=== PATIENT | female | born 1950 | race Caucasian/White ===

== ENCOUNTER 2023-08-30 09:32 | Outpatient (REF) | payer BC, SELFPAY ==
[2023-08-30 11:28] LABS: MANUAL DIFF FLAG NO
[2023-08-30 11:33] LABS: Basophils Percent Auto 0.7 % (0-2); Eosinophils Absolute Auto 0.1 X10*3/uL (0.0-0.4); Eosinophils Percent Auto 1.1 % (0-4); Hematocrit 41.8 % (37.0-47.0); Hemoglobin 13.8 g/dl (12.0-16.0); Imm Gran Abs Auto 0.02 X10*3/uL (0.00-0.03); Imm Gran Pct Auto 0.5 % (0.0-0.4); Lymphocytes Absolute Auto 1.3 X10*3/uL (1.2-4.9); Lymphocytes Percent Auto 29.4 % (20-40); Mean Corpuscular Hemoglobin 29.9 pg (27.0-33.0); Mean Corpuscular Volume 90.7 fL (80.0-98.0); Mean Platelet Volume 10.3 fL (9.4-12.3); Monocytes Absolute Auto 0.3 X10*3/uL (0.1-1.2); Monocytes Percent Auto 6.9 % (2-11); Neutrophils Absolute Auto 2.7 x10*3/uL (2.0-8.3); Neutrophils Percent Auto 61.4 % (45-73); Platelet Count 269 X10*3/uL (160-400); Red Blood Count 4.61 X10*6/uL (4.20-5.50); Red Cell Distribution Width 13.2 % (11.0-16.0); White Blood Count 4.4 X10*3/uL (4.8-10.8)
[2023-08-30 12:03] LABS: Alanine Aminotransferase 15 U/L (0-31); Albumin Level 4.4 g/dL (3.5-5.0); Alkaline Phosphatase 47 U/L (39-117); Anion Gap 13 (12-20); Aspartate Amino Transferase 28 U/L (5-31); Bilirubin Direct 0.4 mg/dL (0.0-0.5); Bilirubin Total 1.4 mg/dL (0.0-1.0); Blood Urea Nitrogen 17 mg/dL (9-16); Carbon Dioxide 28 mmol/L (22-29); Chloride 104 mmol/L (96-108); Cholesterol 236 mg/dL (<200); Estimated Glomerular Filt Rate > 60; Glucose Fasting 88 mg/dL (60-99); HDL Cholesterol 88 mg/dL (>40); LDL Cholesterol Calculated 131 mg/dL (<100); Potassium 4.2 mmol/L (3.3-5.1); Sodium 141 mmol/L (135-145); Total Protein 8.1 g/dL (6.5-8.0); Triglycerides 87 mg/dL (<150)
== END 2023-08-30 09:33 | disposition home or self-care (01) ==
LOC: HO.HMGCLDS 09:32
PROVIDERS: PCP Internal Medicine; Visit Provider Internal Medicine
DX: Z00.00 Encounter for general adult medical examination without abnormal findings (principal); R53.83 Other fatigue; E78.5 Hyperlipidemia, unspecified
CPT/HCPCS: 36415; 80051; 80061; 80076; 82565; 82947; 84520; 85025

== ENCOUNTER 2025-05-15 09:21 | Emergency (ER) | payer BC, SELFPAY ==
[2025-05-15 09:57] VITALS: BP 162/67; PULSE 68; RESP 18; TEMP 36.8; O2SAT 98; BMI 28.3
--- NOTE | 2025-05-15 10:47 | PC.NURSE ---
Pt ambulatory to the BR with a steady gait.
--- NOTE | 2025-05-15 10:56 | PC.NURSE ---
Pt bladder scanned for 300cc. Pt then urinated to provided urine sample (only about 5cc) which was sent to lab.
[2025-05-15 11:06] LABS: Appearance Urine Turbid; Glucose Urine UA Negative (Negative); PH 5.5 (5.0-9.0); Specific Gravity - Urine 1.015 (1.005-1.025); UMIC TRIGGER UACC YES
--- NOTE | 2025-05-15 11:12 | ED.FEMALEGU ---
HPI - Female Genitourinary General Chief complaint: Urogenital-Female Stated complaint: Trouble urinating Time Seen by Provider: 05/15/25 10:38 Source: patient and RN notes reviewed Mode of arrival: ambulatory Limitations: no limitations History of Present Illness ED Provider: Socrates Melissa PA-C HPI Narrative: 74-year-old female with medical history of HLD, HSV 2 presents to the ED due to 3 days of difficulty urinating. Patient states she went to urgent care on 05/09/25 due to painful urination and was diagnosed by culture with genital herpes. Patient was started on acyclovir. Patient reports she is unsure if difficulty with urination began before starting acyclovir or after. She was told that acyclovir could cause urinary retention and she is worried that this medication is causing her symptoms. Related Data Previous Rx's ?Medication ?Instructions ?Recorded simvastatin 40 mg tablet 40 mg PO BEDTIME #90 tabs 05/02/25 Allergies Allergy/AdvReac Type Severity Reaction Status Date / Time No Known Allergies Allergy Verified 05/15/25 09:59 Review of Systems Review of Systems: CONST: Negative for fever, body aches and chills. HENT: Negative for neck pain/stiffness, headache, congestion, sore throat, swelling. EYES: Negative for discharge/pain or vision changes. RESP: Negative for cough/hemoptysis and shortness of breath. CV: Negative chest pain, difficulty breathing, palpitations. ABD: Negative pain, nausea, vomiting. : Negative increase frequency, dysuria, blood in urine or stool. POS straining with urination MUSC: Negative for muscle aches, edema. SKIN: Negative rash, lesions/sores. NEURO: Negative headache, dizziness, weakness. Yes all other systems are reviewed and are negative [facility] Past Medical History Attestation statement: The following information was validated with the patient. Source: old records reviewed and nursing notes reviewed Social History Social History Advance Directives: No Advance Directives Information Provided: Yes Physical Exam Vital Signs: Vital Signs: Last Vital Signs Temp 98.3 F 05/15/25 09:57 Pulse 68 05/15/25 09:57 Resp 18 05/15/25 09:57 BP 162/67 H 05/15/25 09:57 Pulse Ox 98 05/15/25 09:57 O2 Del Method Room Air 05/15/25 09:57 BMI result Body Mass Index 28.3 GENERAL APPEARANCE: ?AxOx4, generally well-appearing, no acute distress. HEENT: ?NC, AT. MMM. EOMI, clear conjunctiva, oropharynx clear. NECK: ?Supple without lymphadenopathy.? No stiffness or restricted ROM. HEART:? Normal rate and regular rhythm, normal S1/S1, no m/r/g LUNGS:? CTAB, moving air well. No crackles or wheezes are heard. ABDOMEN: ?Soft, nontender, nondistended, no bladder distention, no suprapubic tenderness to palpation, with good bowel sounds heard. EXTREMITIES: ?Without cyanosis, clubbing or edema. NEUROLOGICAL: ?Grossly nonfocal. Alert and oriented, moving all 4 extremities. Observed to ambulate with normal gait. Skin: ?Warm and dry without any rash. 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 Patient states she went to urgent care on 05/09/25 due to painful urination and was diagnosed by culture with genital herpes. Patient was started on acyclovir. Patient reports she is unsure if difficulty with urination began before starting acyclovir or after. She was told that acyclovir could cause urinary retention and she is worried that this medication is causing her symptoms. Patient states she has had vaginal prolapse in the past, has pessary in place. Patient without any neurological defects, no pronator drift, ambulating without ataxic gait. plan: labs, UA, PVR bladder scan Course 12:55- Labs without leukocytosis, H and H stable, no electrolyte abnormalities. Patient attempted to give urine for UA, was only able to urinate very small amount, PVR revealed >300ml. Patient was straight cathed and 300 mL of urine collected. UA negative for infection, blood. 14:15- Patient urinated 100 mL, PVR shows >232 mL urine left in bladder. We will provide referral for [facility], [facility] uro rehab therapy manager for follow up. I counseled patient that she needs further workup for urinary retention. Volume of urine left in bladder not significant enough to need Lantigua catheterization. Differential Diagnosis Differential Diagnoses: The differential diagnosis associated with the presentation includes UTI Bladder outlet obstruction Medication side effect Neurogenic bladder Admission/Observation Consideration of admission/observation: Escalation of care including admission/observation considered Lab Data MDM Lab Attestation statement: I reviewed the patient's lab results. 05/15/25 11:33 05/15/25 11:33 Labs: Lab Results 05/15/25 05/15/25 05/15/25 Range/Units 10:51 11:24 11:33 WBC 6.0 (4.8-10.8) X10*3/uL RBC 4.72 (4.20-5.50) X10*6/uL Hgb 13.7 (12.0-16.0) g/dl Hct 41.6 (37.0-47.0) % MCV 88.1 (80.0-98.0) fL MCH 29.0 (27.0-33.0) pg MCHC 32.9 (31.0-35.0) g/dl RDW 12.9 (11.0-16.0) % Plt Count 264 (160-400) X10*3/uL MPV 9.6 (9.4-12.3) fL Immature Gran % (Auto) 0.2 (0.0-0.4) % Neut % (Auto) 70.0 (45-73) % Lymph % (Auto) 23.1 (20-40) % [place] % (Auto) 5.5 (2-11) % Eos % (Auto) 0.5 (0-4) % Baso % (Auto) 0.7 (0-2) % Lymph # (Auto) 1.4 (1.2-4.9) X10*3/uL [place] # (Auto) 0.3 (0.1-1.2) X10*3/uL Eos # (Auto) 0.0 (0.0-0.4) X10*3/uL Baso # (Auto) 0.0 (0.0-0.2) X10*3/uL Abs Immat Gran (auto) 0.01 (0.00-0.03) X10*3/uL Absolute Neuts (auto) 4.2 (2.0-8.3) x10*3/uL Absolute Nucleated RBC 0.000 (0.0-0.012) X10*3/uL Nucleated RBC % (auto) 0.0 (0.0-0.2) /100WBC Sodium 142 (135-145) mmol/L Potassium 4.3 (3.3-5.1) mmol/L Chloride 104 (96-108) mmol/L Carbon Dioxide 28 (22-29) mmol/L Anion Gap 14 (12-20) BUN 12 (9-16) mg/dL Creatinine 0.81 (0.5-1.4) mg/dL Estim Creat Clear Calc 60.4 Estimated GFR > 60 Random Glucose 101 (60-115) mg/dL Calcium 9.6 (8.4-10.2) mg/dL Total Bilirubin 0.9 (0.0-1.0) mg/dL AST 23 (5-31) U/L ALT 13 (0-31) U/L Alkaline Phosphatase 48 (39-117) U/L Total Protein 8.1 H (6.5-8.0) g/dL Albumin 4.6 (3.5-5.0) g/dL Urine Color Yellow Yellow Urine Appearance Turbid Clear Urine pH 5.5 6.0 (5.0-9.0) Ur Specific [place] 1.015 1.015 (1.005-1.025) Urine Protein 30 (1+) H Negative (Neg-Trace) mg/dL Urine Glucose (UA) Negative Negative (Negative) mg/dL Urine Ketones Trace Negative (Negative) mg/dL Urine Blood Large (3+) H Negative (Negative) Urine Nitrite Negative Negative (Negative) Ur Leukocyte Esterase Large (3+) H Negative (Negative) Urine RBC 3-5 H (0-2) /HPF Urine WBC >50 H (0-5) /HPF Ur Squamous Epith Cells >20 (0-2) /HPF Urine Bacteria 2+ (None Seen) Hyaline Casts 0-2 (0-2) /LPF External Record Review External record reviewed: Inpatient record, Office record and Outpatient record Discharge Plan Discharge Clinical Impression: Urinary retention Patient Disposition: Home, Self-Care Instructions: Acute Urinary Retention in Women (ED) Additional Instructions: You were evaluated in the ED today due to difficulty urinating. Your lab work was negative for infection or electrolyte abnormality. Your urinary analysis was negative for blood or infection. Your bladder scan revealed >232mL of urine after you voided 100mL I have placed a referral for Urology for you. [facility] will be contacting you within 2 business?days after being discharged from the Emergency?Department.? During this?phone call, they will inform you when your follow up appointment will be scheduled. If you have not received a call from [facility] after 2 business?days, please call the?office at [phone]. I have also provided information to [facility] uro[facility]ne[facility]. You should call [facility] office tomorrow morning at 8am for follow up. Please return to the emergency department if you develop fevers over 104?, distention or hardening of your lower abdomen, abdominal pain, inability to urinate, worsening difficulty urinating, blood in the urine, or any new/worsening/concerning symptoms. Prescriptions: No Action simvastatin 40 mg tablet 40 mg PO BEDTIME Qty: 90 1RF Referrals: eTresa Zendejas MD [Physician, Urogynecology] Print Language: Jordanian
[2025-05-15 11:16] LABS: UACC Culture Trigger YES
[2025-05-15 11:39] LABS: MANUAL DIFF FLAG NO
[2025-05-15 11:45] LABS: Appearance Urine Clear; Glucose Urine UA Negative (Negative); PH 6.0 (5.0-9.0); Specific Gravity - Urine 1.015 (1.005-1.025)
[2025-05-15 11:45] LABS: Hematocrit 41.6 % (37.0-47.0); Hemoglobin 13.7 g/dl (12.0-16.0); Imm Gran Abs Auto 0.01 X10*3/uL (0.00-0.03); Imm Gran Pct Auto 0.2 % (0.0-0.4); Lymphocytes Absolute Auto 1.4 X10*3/uL (1.2-4.9); Mean Corpuscular HGB Conc 32.9 g/dl (31.0-35.0); Mean Corpuscular Hemoglobin 29.0 pg (27.0-33.0); Mean Corpuscular Volume 88.1 fL (80.0-98.0); NRBC Abs Auto 0.000 X10*3/uL (0.0-0.012); NRBC Pct Auto 0.0 /100WBC (0.0-0.2); Platelet Count 264 X10*3/uL (160-400); Red Blood Count 4.72 X10*6/uL (4.20-5.50); White Blood Count 6.0 X10*3/uL (4.8-10.8)
[2025-05-15 11:55] LABS: Alanine Aminotransferase 13 U/L (0-31); Albumin Level 4.6 g/dL (3.5-5.0); Alkaline Phosphatase 48 U/L (39-117); Anion Gap 14 (12-20); Aspartate Amino Transferase 23 U/L (5-31); Blood Urea Nitrogen 12 mg/dL (9-16); Calcium 9.6 mg/dL (8.4-10.2); Carbon Dioxide 28 mmol/L (22-29); Chloride 104 mmol/L (96-108); Creatinine Clr Calc Pharmacy 60.4; Estimated Glomerular Filt Rate > 60; Potassium 4.3 mmol/L (3.3-5.1); Sodium 142 mmol/L (135-145); Total Protein 8.1 g/dL (6.5-8.0)
--- OUTSIDE RECORDS SUMMARY | 2025-05-15 12:11 | XMS_ITS | Patient Health Record ---
Author Organization Oral Munguia III, MD Address [address] [place] [address] Care Team Providers Care Kiln Burner Name Role Phone Geoffrey James MD Primary Care Provider Unavailab Oral Carrasquillo Unavailable [phone] Allergies Allergen (clinical drug ingredient) Drug/Non Drug Allergy documented on EMR Reaction Allergy Type Onset Date Status No Known Drug Allergy Unknown Drug Allergy Active Reason For Referral Reason DCIS Diagnosis 1 DCIS (ductal carcino ma in situ) (D05.10) Referring Provider First Name Geoffrey Referring Provider Last Name Erika Referred Organization Oral Munguia III, MD Referred Provider Oral Munguia Referred Address [address] [place] [address] [address],[place], [place],[address], Referred Provider Specialty Oncology Referral Priority Routine Medications Medication SIG (Take, Route, Fr equency, [...] Additional Findings: Tobacco Non-User Ex-cigaret te smoker Alcohol Screen Question Answer Notes Did you have a drink containing alcohol in the p ast year? No Points 0 Interpretation Negative Problems Problem Type SNOMED Code ICD Code Onset Dates Problem Status W/U Status Risk Notes Problem 0786717 Former smoker (Z87.891) Active confirmed She is highly motivated not to smoke. She has a plan for prevention of abstinence in times of illness or stress. Problem 64968547 Hyperlipidemia (E78.5) Active confirmed Her lipids are fairly well-controll ed and no change in her regimen was made. Problem 20427294 Postmenopausal (Z78.0) Active confirmed She has had no vaginal bleeding to report. 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 She feels healthy and well. She is compliant with annual mammography and breast self examination. There have been no new cases of breast or uterine or ovarian cancer in her family since her last visit. 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 She has a plan for prevention of abstinence in times of illness or stress. 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 She feels healthy and well. She is compliant with annual mammography and breast self examination. There have been no new cases of breast or uterine or ovarian cancer in her family since her last visit. 10/30/2024 Hyperlipidemia (ICD-10 - E78.5) Her lipids are fairly well-controlled and no change in her regimen was made. 10/30/2024 Postmenopausal (ICD-10 - Z78.0) She has had no vaginal bleeding to report. Plan Of Treatment Next Appt Details Provider Name:Oral Munguia, 10/30/2025 09:30:00 AM, [address] [place] [address] [address], [place], [address], Insurance Providers Payer Name Payer Address Payer Phone Subscriber Number Group Number Insured Name Patient Relationship to Insured Coverage Start Date Coverage End Date [facility] [address] [place], [place] [id number] [phone] [id number] NilsonHaydee hopkinsara Self - patient is the insured MEDICARE NGS [address] [place] [address] [id number] Aure Walters Self - patient is the insured Medical (General) History Medical History History ICD Code [id number] Tamoxifen quit date 2013. post menopausal uterine bleeding December, negative endometrial biopsy 2008 right breast DCS with m icroinvasion ER&SC+,her2 neg, 1 cm, [id number], excision,RT,MORA menarche age 15 menopause age 59 tamoxifen quit date August 2014 Surgical History Surgery Date(Month/Year) Right breast biopsy, lumpectomy, sentine l nodes August 2009 uterine biopsy, negative, postmenopausal bleeding on tamoxifen December 31, 2012 polypectomy and D&C, benign tissue No history Hospitalization History Reason Date(Month/Year) No history
--- OUTSIDE RECORDS SUMMARY | 2025-05-15 12:11 | XMS_ITS | Patient Health Record ---
[facility] Organization [facility] Address [address] [place] [address] Care Team Providers Care Carton Stenciler Name Role Phone Geoffrey James MD Primary Care Provider Toro Winkler Unavailable [phone] Allergies No Known Allergies Reason For Referral No Information Medications Medication SIG (Take, Route, Frequency, Duration) Notes Start Date End Date Status Doxycycline Hyclate 100 MG 1 capsule Orally Once a day; Duration: 5 days 08/19/2021 Not-Taking Combigan 0.2-0.5 % 1 drop into affected eye Ophthalmic Twice a day Active Immunizations Vaccine Route Administration Date Status Comme nts Influenza Unknown 07/02/2021 Administered COVID-19 Pfizer BioNTech Vaccine Unknown 07/02/2021 Administered first dose:11/19/2020 second dose:12/12/2020 Social History Tobacco Use: Social History Observation Description Date Details (start date - stop date) Former Smoker NA - NA Tobacco Use/Smoking Question Answer Notes Are you a: former smoker Additional Findings: Tobacco Non-User Ex-cigaret te smoker Alcohol Screen Question Answer Notes Did you have a drink containing alcohol in the p ast year? Yes Points 0 Interpretation Negative Tobacco use other than smoking: Question Answer Notes Are you an other tobacco user? No Problems Problem Type SNOMED Code ICD Code Onset Dates Problem Status W/U Status Risk Notes Problem Acquired hallux valgus (35991885) Hallux valgus (acquired), left foot (M20.12) Active confirmed Problem Acquired hallux valgus (63031245) Hallux valgus (acquired), right foot (M20.11) Active confirmed Problem Acquired hammer toe of right foot (8231239362856 105) Other hammer toe(s) (acquired), right foot (M20.41) Active confirmed Problem Acquired hammer toe of left foot (5817960626405 103) Other hammer toe(s) (acquired), left foot (M20.42) Active confirmed Plan Of Treatment Pending Test Test Name Order Date X ray : Foot, left 3V 10/13/2021 X ray : Foot, right 3V 10/13/2021 Insurance Providers Payer Name Payer Address Payer Phone Subscriber Number Group Number Insured Name Patient Relationship to Insured Coverage Start Date Coverage End Date Medicare National [employer] [address] [facility] [place] [phone] [id number] Aure Torres Self - patient is the insured [facility] [address] [place] [address] [id number] Aure Torres Self - patient is the insured Medical (General) History Medical History History ICD Code Cancer Glaucoma Measles Mumps Chicken pox Surgical History Surgery Date(Month/Year) unknown? 08/2009
[2025-05-15 14:18] VITALS: BP 140/56; PULSE 65; RESP 16; O2SAT 98
[2025-05-15 14:34] VITALS: BP 140/56; PULSE 65; RESP 16; TEMP 36.8; O2SAT 98
== END 2025-05-15 14:34 | disposition home or self-care (01) ==
PROVIDERS: Emergency Provider Emergency Medicine
DX: R33.9 Retention of urine, unspecified (principal); R39.198 Other difficulties with micturition; R30.0 Dysuria
CPT/HCPCS: 36415; 51701; 51798; 80053; 81001; 81003; 85025; 87086; 99283; 99284

== ENCOUNTER 2025-07-15 13:34 | Outpatient (AMB) | payer BC, SELFPAY ==
--- OUTSIDE RECORDS SUMMARY | 2024-10-30 10:30 | XMS_ITS ---
Author Organization Oral Munguia III, MD Address [address] [place] [address] Care Team Providers Care Tar Worker Name Role Phone Geoffrey James MD Primary [...] Date Provider Diagnosis Oral Munguia III, MD [address] [place] [address] [place] [address] 10/30/2024 Oral Munguia DCIS (ductal carcino ma [...] Name:Oral Peggy Munguia , 10/30/2025 09:30:00 AM, [address] [place] [address] [address] [facility] [place], [place], [address], Progress Notes * Aure LIAODOB:[birth year] (74 yo F)Acc No.[id number]:10/30/2024 Progress Notes Patient: Aure GUADALUPE Provider: Devon Munguia MD :1950 A ge:74 Y S ex:Female Date:10/30/2024 Address: [address], [id number] Pcp:Geoffrey James MD Subjective: * Chief Complaints: [...] She has a daughter who lives in [place] who has 6 children. * Social History: T obacco Use: T obacco Use/Smoking P milo is a f ormer smoker H ow long has it been since you last smoked??> 10 years A dditional Findings: Tobacco Non-User E x-cigarette smoker S he was born in [place]. She has been to [place] for forty years. She works at [employer]. * Medications: T akingVitamin D Simvastatin 20 [...] 0 10/30/2024 Generated for Sloan briceno/Zay/Daiitting on: 04:26 PM EDT History and Physical Notes * HPI (History [...]
[2025-07-15 13:45] VITALS: BP 144/66; PULSE 80; RESP 18; TEMP 36; O2SAT 97; BMI 29.4
--- NOTE | 2025-07-15 13:45 | MHC.PC.OV ---
Vital Signs 07/15/25 13:45 Height 5 ft 4 in Weight 171 lb 4 oz BMI 29.4 BP 144/66 H Blood Pressure Location Lt brachial Position Sitting Respiration 18 Pulse 80 Pulse Source Pulse Oximeter Temp 96.8 F Temp Source Temporal Artery Scan Pulse Oximetry (%) 97 Oxygen Delivery Method Room Air Intake Visit Reasons: establish care Legal Word Processor Required: No Accompanied by: Self / Same As Patient Allergies No Known Allergies Allergy (Verified 07/16/25 16:18) Medication List - Last Reconciled 07/16/25 by DICK Bai simvastatin 40 mg PO BEDTIME Tobacco use date assessed: 07/15/25 Fall risk assessment: No Falls in past year Last assessed Fall Risk: 07/15/25 Dental Screening Dental Screen Date: 07/15/25 Did you have a dental visit in the last 12 months?: Yes Did you have a dental problem in the last 6 months where you did not have access to dental care?: No Was dental information given to patient?: Patient has dentist HPI establish care HPI Details The patient presenting to establishing care Previous PCP: Dr. James Last visit: October 17, 2024 Last PE: same Specialist: Dr. Bañuelos oncologist once a year since 2008, breast cancer, non invasive ductal, lumpectomy, treated with chemo and radiation [facility] Dr. Tasia Tavarez Past medical history: Glaucoma, cataract surgery, stent placed for by Dr. Hilda Saravia due to glaucoma. Reports that the practice was closed, so she needs a new referral for monitoring her eyes. Medications: simvastatin 40 mg at bedtime Family HX: glaucoma father, mother and both brothers had AFIB. Problem: Establishing care-needing new referral She is seeing obgyn every 3 months labs ordered, will advise when resulted PFSH Medical History Cataract and glaucoma syndrome History of breast cancer Surgical History H/O lumpectomy Family History Father Glaucoma Mother Glaucoma Brother Afib Brother Afib Questionnaire PHQ-9 Over the last 2 weeks, how often have you been bothered by any of the following problems? 1. Little interest or pleasure in doing things: not at all 2. Feeling down, depressed, or hopeless: not at all 3. Trouble falling or staying asleep, or sleeping too much: not at all 4. Feeling tired or having little energy: not at all 5. Poor appetite or overeating: not at all 6. Feeling bad about yourself - or that you are a failure or have let yourself or your family down: not at all 7. Trouble concentrating on things, such as reading the newspaper or watching television: not at all 8. Moving or speaking so slowly that other people could have noticed. Or the opposite - being so fidgety or restless that you have been moving around a lot more than usual: not at all 9. Thoughts that you would be better off or of hurting yourself in some way: not at all Total score: 0 Depression Screening Interpretation: Negative Depression Screening Done: Yes 55321 - PHQ-9 Billing: Yes Source: Developed by Drs. Oral Polanco, Rosalva Zamora, Bong Self and colleagues, with an educational jo ann from [employer]. Thrive Questionnaire Date Thrive assessed: 07/08/25 I am a: Patient What is your living situation today?: I have a steady place to live Within the past 12 months, did the food you bought not last and you didn't have the money to get more?: Never true Within the past 12 months, did you worry whether your food would run out before you got money to buy more?: Never true Do you have trouble paying for medicines?: No Do you have trouble getting transportation to medical appointments?: No Do you have trouble paying your heating and electricity bill?: No Do you have trouble taking care of your child, family member or friend?: No Do you have trouble with day-to-day activities such as bathing, preparing meals, shopping, managing finances, etc.?: No Are you currently unemployed and looking for a job?: No Are you interested in more education?: No Please select the resources that you would like help with: None Currently or been in a relationship where the following occur: No concerns reported THRIVE Score: 0 AUDIT C Alcohol Use Questionnaire (AUDIT-C) 1. How often do you have a drink containing alcohol?: 2-4 times a month 2. How many drinks containing alcohol do you have on a typical day when you are drinking?: 1 or 2 3. How often do you have six or more drinks on one occasion?: Never Total Score: 2 HAMMAD-7 AMB Questionnaire HAMMAD-7 Feeling nervous, anxious, or on edge: 0 = Not at all Not being able to stop or control worryin = Not at all Worrying too much about different things: 0 = Not at all Trouble relaxin = Not at all Being so restless that it is hard to sit still: 0 = Not at all Becoming easily annoyed or irritable: 0 = Not at all Feeling afraid as if something awful might happen: 0 = Not at all Total HAMMAD-7 score (0-4 normal; 5-9 mild; 10-14 moderate; 15-21 severe): 0 Source: Developed by Drs. Oral Polanco, Rosalva Zamora, Bong Self and colleagues, with an educational jo ann from [employer]. HAMMAD-7 Assessment Billing HAMMAD-7 Assessment Tool: HAMMAD-7 Assessment 86413 Review of Systems Const Denies headache(s) Eyes Denies loss of vision ENT Denies vertigo, Denies dizziness, Denies headache(s) and Denies sore throat Card Denies chest pain, Denies leg edema and Denies lightheadedness Resp Denies cough, Denies hemoptysis and Denies wheezing GI Denies abdominal pain, Denies melena, Denies constipation, Denies diarrhea and Denies vomiting Denies urinary frequency, Denies dysuria and Denies urinary urgency Musc Denies arthralgias, Denies joint swelling, Denies numbness and Denies tingling Neuro Denies Abnormal speech present, Denies behavioral changes, Denies vertigo, Denies dizziness, Denies headache(s), Denies loss of vision, Denies memory loss, Denies numbness and Denies tingling Psych Denies anxiety, Denies behavioral changes, Denies depression, Denies memory loss and Denies panic attacks Patrick/Lymph Denies easy bleeding and Denies easy bruising Aller/Immun Denies wheezing Physical exam (Primary Care) Vital Signs: Last Vital Signs Temp 96.8 F 07/15/25 13:45 Pulse 80 07/15/25 13:45 Resp 18 07/15/25 13:45 BP 144/66 H 07/15/25 13:45 Pulse Ox 97 07/15/25 13:45 Oxygen Delivery Method Room Air 07/15/25 13:45 BMI result Body Mass Index 29.4 Tobacco/Smoking Status: Tobacco use Status Tobacco use date assessed 07/15/25 07/15/25 13:51 PHQ-9: PHQ-9 Score PHQ-9: Total score 0 07/15/25 14:20 Depression Screening Interpretation: Negative Thrive Assessment: Date of Thrive Assessment Date Thrive assessed 07/08/25 07/15/25 13:51 Currently or been in a relationship where the following occur: No concerns reported Const General: healthy appearing, no acute distress, alert and awake Nutritional Appearance: well nourished Orientation/consciousness: oriented to person, oriented to place and oriented to time HENMT Ears: TM's normal bilaterally General nose exam: Normal nasal mucous membranes and turbinates present Eyes Conjunctivae: conjunctivae normal Sclerae: sclerae normal Pupils: Equal, round and reactive pupils present Neck Neck: Yes no lymphadenopathy and Yes no JVD Thyroid: Thyroid normal Carotids: no bruits Resp Effort & Inspection: normal respiratory effort and not tachypneic Auscultation: no crackles, no rales, no rhonchi and no wheezes Cardio Rate: regular rate Rhythm: regular rhythm Heart sounds: no murmurs and normal S1 and S2 GI Palpation (GI): Soft to palpation, nontender, no hepatomegaly and no splenomegaly Auscultation: normal bowel sounds Skin General skin exam: no rashes or lesions noted and dry skin Neuro General: oriented to person, oriented to place and oriented to time Cranial nerves: Yes Equal, round and reactive pupils present Speech: No Abnormal speech present Gait exam (Neuro): Normal gait present Motor exam (neuro): no tremor noted Extrem Right upper extremity: full ROM Left upper extremity: full ROM Right lower extremity: full ROM; no edema Left lower extremity: full ROM; no edema Psych Mental Status: mental status grossly normal Speech and movement: Normal speech and movement present Affect: normal affect Attitude: cooperative Thought process: Normal thought process present Coding Level of Care Code New Pt Level 4 (61747) Diagnoses Cataract and glaucoma syndrome Q87.89; Q12.0; Q15.0 Hyperlipidemia, unspecified hyperlipidemia type E78.5 Hyperlipidemia type: unspecified Tilted uterus N85.4 Elevated blood pressure reading in office without diagnosis of hypertension R03.0 Additional Codes PHQ-9 - 09851 - PHQ-9 Billing: Yes ([id number]) HAMMAD-7 Assessment Billing - HAMMAD-7 Assessment Tool: HAMMAD-7 Assessment 76678 ([id number]) Time Spent (min) 37 Assessment & Plan Assessment & Plan (1) Cataract and glaucoma syndrome: Code(s): Q87.89 - Other specified congenital malformation syndromes, not elsewhere classified; Q12.0 - Congenital cataract; 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 Saravia who has left the practice. A new referral was placed for ongoing follow ups. (2) HLD (hyperlipidemia): Code(s): E78.5 - Hyperlipidemia, unspecified Category: Medical Qualifiers: Hyperlipidemia type: unspecified Qualified Code(s): E78.5 - Hyperlipidemia, unspecified Plan: Reinforced low cholesterol diet and activity as tolerated Lipid panel ordered to evaluate (3) Tilted uterus: Code(s): N85.4 - Malposition of uterus Category: Medical Plan: The patient reports that a recent incident of her retaining urine and there was plans for her to be referred to urology. Her OBgyn reassured her that she does not need urology and this was because of her tilted uterus. Reports that she is currently seeing her urologist every 3 months. (4) Elevated blood pressure reading in office without diagnosis of hypertension: Code(s): R03.0 - Elevated blood-pressure reading, without diagnosis of hypertension Category: Medical Plan: The patient blood pressure was above goal in office. Per patient, her blood pressure has always been normal and the elevation may be due to being in a new office. Encouraged the patient to monitor blood pressure at home to reevaluate. Encouraged a low salt diet and adequate hydration. Orders: Orders Comprehensive [place]. Panel Fast 07/15/25 E78.5 - Hyperlipidemia, unspecified, Z00.00 - Encounter for general adult medical examination without abnormal findings UA CC w/rflx Micro + Cult 07/15/25 E78.5 - Hyperlipidemia, unspecified, Z00.00 - Encounter for general adult medical examination without abnormal findings TSH reflex Free T4 07/15/25 E78.5 - Hyperlipidemia, unspecified, Z00.00 - Encounter for general adult medical examination without abnormal findings Complete Blood Count Auto Diff 07/15/25 Z00.00 - Encounter for general adult medical examination without abnormal findings Lipid Panel 07/15/25 E78.5 - Hyperlipidemia, unspecified, Z00.00 - Encounter for general adult medical examination without abnormal findings Vitamin D 25-OH Total 07/15/25 E78.5 - Hyperlipidemia, unspecified, Z00.00 - Encounter for general adult medical examination without abnormal findings Referrals Ophthalmology Referral Q12.0 - Congenital cataract, Q15.0 - Congenital glaucoma, Q87.89 - Other specified congenital malformation syndromes, not elsewhere classified
--- OUTSIDE RECORDS SUMMARY | 2025-07-15 16:26 | XMS_ITS | Patient Health Record ---
Author Organization Oral Munguia III, MD Address [address] [place] [address] [address] [place] [address] Care Team Providers Care Dry Talc Racker Name Role Phone Geoffrey James MD Primary [...] MD Referred Provider Oral Munguia Referred Address [address] [place] [address] [address], [place],[address], Referred Provider Specialty Oncology Referral Priority Routine [...] Problem Status W/U Status Risk Notes Problem 7573595 Former smoker (Z87.891) Active confirmed She is highly motivated not to smoke. She has a plan for prevention of abstinence in times of illness or stress. Problem 86450036 Hyperlipidemia (E78.5) Active confirmed Her lipids are fairly well-controll ed and no change in her regimen was made. Problem 62281776 Postmenopausal (Z78.0) Active confirmed She has had no vaginal bleeding to report. 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 [...] Date Provider Diagnosis Oral Munguia III, MD [address] [place] [address] [place] [address] 10/30/2024 Oral Munguia DCIS (ductal carcino ma [...] Of Treatment Next Appt Details Provider Name:Oral Munguia , 10/30/2025 09:30:00 AM, [address] [place] [address] [address], [place], [address], Insurance Providers Payer Name Payer Address Payer Phone Subscriber Number Group Number Insured Name Patient Relationship to Insured Coverage Start Date Coverage End Date [facility] [address] [place], [place] [id number] NilsonHaydee hopkinsara Self - patient is the insured MEDICARE NGS [address] [place] [address] [id number] Aure Walters Self - patient is the insured Medical (General) History Medical History History ICD Code [id number] Tamoxifen quit date 2013. post menopausal uterine bleeding December, negative endometrial biopsy 2008 right breast DCS with m icroinvasion ER&NV+,her2 neg, 1 cm, [id number], excision,RT,MORA menarche age 15 menopause age 59 tamoxifen quit date August 2014 Surgical History Surgery Date(Month/Year) Right breast biopsy, lumpectomy, sentine l nodes August 2009 uterine biopsy, negative, postmenopausal bleeding on tamoxifen December 31, 2012 polypectomy and D&C, benign tissue No history Hospitalization History Reason Date(Month/Year) No history
--- OUTSIDE RECORDS SUMMARY | 2025-07-15 16:26 | XMS_ITS | Patient Health Record ---
Author Organization [facility] Address [address] [place] [address] Care Team Providers Care System Development Manager Name Role Phone Geoffrey James MD Primary Care Provider Unavailab Toro Rai Unavailable [phone] Allergies No Known Allergies Reason For Referral [...] Status Risk Notes Problem Acquired hallux valgus (19682476) Hallux valgus (acquired), left foot (M20.12) Active confirmed Problem Acquired hallux valgus (01303464) Hallux valgus (acquired), right foot (M20.11) Active confirmed Problem Acquired hammer toe of right foot (3830390613822 105) Other hammer toe(s) (acquired), right foot (M20.41) Active confirmed Problem Acquired hammer toe of left foot (0812634161334 103) Other hammer toe(s) (acquired), left foot [...] National [employer] [address] [place] [phone] [id number] Aure Torres Self - patient is the insured [facility] [address] [place] [address] [id number] Aure Torres Self - patient is the insured Medical (General) History Medical History History ICD Code Cancer Glaucoma Measles Mumps Chicken pox Surgical History Surgery Date(Month/Year) unknown? 08/2009
== END 2025-07-15 14:56 | disposition home or self-care (01) ==
LOC: HO.HMCH 13:35
DX: Q87.89 Other specified congenital malformation syndromes, not elsewhere classified (principal); Q12.0 Congenital cataract; Q15.0 Congenital glaucoma; E78.5 Hyperlipidemia, unspecified; N85.4 Malposition of uterus; R03.0 Elevated blood-pressure reading, without diagnosis of hypertension

== ENCOUNTER → 2025-07-15 13:34 | Outpatient (BNVA) | payer BC, SELFPAY | DX: N85.4 Malposition of uterus (principal); R03.0 Elevated blood-pressure reading, without diagnosis of hypertension; Q87.89 Other specified congenital malformation syndromes, not elsewhere classified; Q12.0 Congenital cataract; Q15.0 Congenital glaucoma; E78.5 Hyperlipidemia, unspecified | CPT/HCPCS: 96127 ==

== ENCOUNTER 2025-09-09 07:45 | Outpatient (REF) | payer MEDICARE, SELFPAY ==
--- OUTSIDE RECORDS SUMMARY | 2024-10-30 09:30 | XMS_ITS ---
Author Organization Oral Munguia III, MD Address [address] [address] Care Team Providers Care Hand Spring Former Name Role Phone Geoffrey James MD Primary Care Provider Unavailab Dr. Oral Carrasquillo III Unavailable Allergies Allergen (clinical drug ingredient) Drug/Non Drug Allergy documented on EMR Reaction Allergy Type Onset Date Status No Known Drug Allergy Unknown Drug Allergy Active REASON FOR VISIT DCIS Breast cancer, hyperlipidemia, postmenopausal Medications Medication SIG (Take, Route, Fr equency, Duration) Notes Start Date End Date Status Fish Oil Active Simvastatin 20 MG 1 tablet in the even ing Orally Once a day Active Vitamin D Active Social History Tobacco Use: Social History Observation Description Date Details (start date - stop date) Former Smoker NA - NA Tobacco Use/Smoking Question Answer Notes Patient is a former smoker How long has it been since you last smoked? 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 She feels healthy and well. She is compliant with annual mammography and breast self examination. There have been no new cases of breast or uterine or ovarian cancer in her family since her last visit. 10/30/2024 Former smoker (ICD-1 0 - Z87.891) She is highly motivated not to smoke. She has a plan for prevention of abstinence in times of illness or stress. 10/30/2024 Hyperlipidemia (ICD-10 - E78.5) Her lipids are fairly well-controlled and no change in her regimen was made. 10/30/2024 Postmenopausal (ICD-10 - Z78.0) She has had no vaginal bleeding to report. Plan Of Treatment Medication Medication Name Sig Start Date Stop Date Notes Fish Oil Simvastatin 20 MG 1 tablet in the even ing Orally Once a day Vitamin D Next Appt Details Follow Up: 1 Year, Reason: O V Provider Name:Oral Peggy Munguia , 10/30/2025 09:30:00 AM, [address] [place] [address] [address] [facility] [place], [place], [address], Progress Notes * Aure LIAODOB:[birth year] (74 yo F)Acc No.[id number]:10/30/2024 Progress Notes Patient: Aure GUADALUPE Provider: Devon Munguia MD :1950 A ge:74 Y S ex:Female Date:10/30/2024 Address: [address], [id number] Pcp:Geoffrey James MD Subjective: * Chief Complaints: * D CIS Breast cancerHyperlipidemiaPostmenopausal * HPI: C OVID-19 Screening: Questions H ave you had any new onset fever, chills, cough, congestion, sore throat, shortness of breath, muscle aches? N o * : The patient, a 74-year-old female, has been off tamoxifen, a medication used to treat breast cancer. She has been checking her breasts for lumps and is due for a mammogram next month. She has not reported any new symptoms or changes in her health status. She has not reported any new medications. She has not reported any bleeding or other symptoms. She has been maintaining her weight, although she is a few pounds overweight. * ROS: G eneral/Constitutional: pain o nly normal aches and pains. C hills d enies.?Fatigue a dmits. F ever d enies. E NT: Decreased hearing d enies. R espiratory: Cough d enies. C ardiovascular: Chest pain with exertion d enies. D yspnea on exertion?denies. S hortness of breath d enies. G astrointestinal: Constipation o ccasional. D ecreased appetite d enies. D iarrhea d enies. H eartburn d enies. N ausea d enies. R ectal bleeding d enies. V omiting d enies. H ematology: bruising d enies. p etechiae d enies. S wollen glands n one have been noted. G enitourinary: Frequent urination a t night. M usculoskeletal: Muscle aches d enies. P ainful joints d enies. S ciatica d enies. W eakness d enies. S kin: Itching d enies. R rhonda d enies. S kin lesion(s)?denies. N eurologic: Difficulty speaking d enies. D izziness d enies.?Headache d enies. L ow back pain d enies. P sychiatric: Depressed mood d enies. * Medical History: * Surgical History: R ight breast biopsy, lumpectomy, sentinel nodes August 2009uterine biopsy, negative, postmenopausal bleeding on tamoxifen December 31, 2012polypectomy and D&C, benign tissue 11/2015No history * Hospitalization/Major Diagno stic Procedure: N o history * Family History: F ather: 88 yrs, prostate cancer, aortic stenosis, adult onset diabetes mellitus, hypertension, diagnosed with HTN, Cancer, DM. M other: 92 yrs, emphysema, chronic obstructive pulmonary disease, stroke. 2 brother(s) - healthy. . Her siblings have atrial fibrillation and diabetes. There is no family history of breast cancer. She has a daughter who lives in [place] who has 6 children. * Social History: T obacco Use: T obacco Use/Smoking P milo is a f ormer smoker H ow long has it been since you last smoked??> 10 years A dditional Findings: Tobacco Non-User E x-cigarette smoker S he was born in [place]. She has been to [place] for forty years. She works at [employer]. * Medications: T akingVitamin D Simvastatin 20 MG Tablet 1 tablet in the evening Orally Once a day Fish Oil Medication List reviewed and reconciled with the patientTaking Vitamin D Taking Simvastatin 20 MG Tablet 1 tablet in the evening Orally Once a day Taking Fish Oil Medication List reviewed and reconciled with the patient * Allergies: N o Known Drug Allergyno[Allergies Verified] Objective: * Vitals: H t: 65, Wt:174, BMI:28.95, BP:132/81, HR:70, Temp:98.1, Wt-k.93. * Examination: G eneral Examination: GENERAL APPEARANCE: p leasant, well nourished, well developed, in no acute distress, calm and relaxed, overweight, woman. HEAD: a traumatic, normocephalic. EYES: e joaquim, perrla, anicteric, conjugate. EARS: n ormal. NOSE: s eptum intact. ORAL CAVITY: n ormal, unremarkable. NECK/THYROID: n o jugular venous distention, no carotid bruit, thyroid normal. LYMPH NODES: n o enlarged lymph nodes,spleen normal. SKIN: n o suspicious lesions, anicteric. HEART: n o clicks, gallops, murmurs, or rubs, regular rhythm, S1, S2 normal, no s3, or vascular bruits. LUNGS: c lear to auscultation . BREASTS: n o masses palpable bilaterally, no drainage, no discharge, no dimpling, nontender, symmetrical. ABDOMEN: b owel sounds normal, no ascites, no organomegaly, no mass, overweight. RECTAL EXAM: n ot examined. MUSCULOSKELETAL: e xtremities unremarkable, no clubbing, cyanosis or edema. PERIPHERAL PULSES: n ormal. NEUROLOGIC: a lert and oriented, cranial nerves 2-12 grossly intact, deep tendon reflexes 2+ symmetrical, motor strength normal upper and lower extremities, sensory exam intact. PSYCH: a lert, oriented. Assessment: * Assessment: 1. 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 She feels healthy and well. She is compliant with annual mammography and breast self examination. There have been no new cases of breast or uterine or ovarian cancer in her family since her last visit. 2 . F ormer smoker - Z87.891 N otes :She is highly motivated not to smoke. She has a plan for prevention of abstinence in times of illness or stress. 3 . H yperlipidemia - E78.5 N otes :Her lipids are fairly well-controlled and no change in her regimen was made. 4 . P ostmenopausal - Z78.0 N otes :She has had no vaginal bleeding to report. Plan: * Treatment: * Procedure Codes: * Preventive Medicine: Counseling: C are goal follow-up plan: Counseling for abnormal BMI given Y es Above Normal BMI Follow-up D ietary management education, guidance, and counseling, Dietary needs education S moking/Tobacco Use Patient counseled on the dangers of tobacco use and urged to quit. 0 10/30/2024 * Follow Up: 1 Year (Reason: OV) * Images: * Sign off status: Completed true * Provider: Devon Munguia MD Date: 0 10/30/2024 Generated for Sloan briceno/Zay/Daiitting on: 11/10/2024 08:16 AM EST History and Physical Notes * HPI (History of Present Illness) Category Sub-Category Detail Notes COVID-19 Screening Questions Have you had any new onset fever, chills, cough, congestion, sore throat, shortness of breath, muscle aches?: No Examination Category Sub-Category Detail Notes General Examination GENERAL APPEARANCE: pleasant , well nourished, well developed, in no acute distress, calm and relaxed, overweight, woman HEAD: atraumatic, normocep halic EYES: eomi, perrla, anicte rachna, conjugate EARS: normal NOSE: septum intact NECK/THYROID: no jugular venous di stention, no carotid bruit, thyroid normal HEART: no clicks, gallops, murmurs, or rubs, regular rhythm, S1, S2 normal, no s3, or vascular bruits LUNGS: clear to auscultatio n ABDOMEN: bowel sounds normal, no ascites, no organomegaly, no mass, overweight NEUROLOGIC: alert and oriented, cranial nerves 2-12 grossly intact, deep tendon reflexes 2+ symmetrical, motor strength normal upper and lower extremities, sensory exam intact SKIN: no suspicious lesion s, anicteric PERIPHERAL PULSES: normal BREASTS: no masses palpable b ilaterally, no drainage, no discharge, no dimpling, nontender, symmetrical MUSCULOSKELETAL: extremities unremark able, no clubbing, cyanosis or edema LYMPH NODES: no enlarged lymph no clarissa,spleen normal RECTAL EXAM: not examined PSYCH: alert, oriented ORAL CAVITY: normal, unremarkable
--- OUTSIDE RECORDS SUMMARY | 2025-09-09 08:15 | XMS_ITS | Patient Health Record ---
Author Organization [facility] Address [address] [place] [address] Care Team Providers Care Accounting Administrator Name Role Phone Geoffrey James MD Primary Care Provider Unavailab Toro Rai Unavailable [phone] Allergies No Known Allergies Reason For Referral [...] Status Risk Notes Problem Acquired hallux valgus (01496665) Hallux valgus (acquired), left foot (M20.12) Active confirmed Problem Acquired hallux valgus (23180135) Hallux valgus (acquired), right foot (M20.11) Active confirmed Problem Acquired hammer toe of right foot (6727847178144 105) Other hammer toe(s) (acquired), right foot (M20.41) Active confirmed Problem Acquired hammer toe of left foot (4893447159437 103) Other hammer toe(s) (acquired), left foot [...] [employer] [address] [place] [phone] [id number] Aure Torres Self - patient is the insured [facility] [address] [place] [address] [id number] Aure Torres Self - patient is the insured Medical (General) History Medical History History ICD Code Cancer Glaucoma Measles Mumps Chicken pox Surgical History Surgery Date(Month/Year) unknown? 08/2009
--- OUTSIDE RECORDS SUMMARY | 2025-09-09 08:16 | XMS_ITS | Patient Health Record ---
Author Organization Oral Munguia III, MD Address [address] [place] [address] [address] [place] [address] Care Team Providers Care Electromatic Typist Name Role Phone Geoffrey James MD Primary Care Provider Unavailab Dr. Oral Carrasquillo III Unavailable [phone] Allergies Allergen (clinical drug ingredient) Drug/Non Drug Allergy documented on EMR Reaction Allergy Type Onset Date Status No Known Drug Allergy Unknown Drug Allergy Active Reason For Referral Reason DCIS Diagnosis 1 DCIS (ductal carcino ma in situ) (D05.10) Referring Provider First Name Geoffrey Referring Provider Last Name Erika Referred Organization Oral Munguia III, MD Referred Provider Oral Munguia Referred Address [address] [place] [address] [address], [place],[address], Referred Provider Specialty Oncology Referral Priority Routine [...] Problem Status W/U Status Risk Notes Problem 4791805 Former smoker (Z87.891) Active confirmed She is highly motivated not to smoke. She has a plan for prevention of abstinence in times of illness or stress. Problem 06460164 Hyperlipidemia (E78.5) Active confirmed Her lipids are fairly well-controll ed and no change in her regimen was made. Problem 44822473 Postmenopausal (Z78.0) Active confirmed She has had no vaginal bleeding to report. 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 [...] Date Provider Diagnosis Oral Munguia III, MD [address] [place] [address] [place] [address] 10/30/2024 Oral Munguia DCIS (ductal carcino ma [...] Provider Name:Oral Munguia , 10/30/2025 09:30:00 AM, [address] [place] [address] [address], [place], [address], Insurance Providers Payer Name Payer Address Payer Phone Subscriber Number Group Number Insured Name Patient Relationship to Insured Coverage Start Date Coverage End Date [facility] [address] [place], [place] [id number] NilsonHaydee hopkinsara Self - patient is the insured MEDICARE NGS [address] [place] [address] [id number] uAre Walters Self - patient is the insured Medical (General) History Medical History History ICD Code [id number] Tamoxifen quit date 2013. post menopausal uterine bleeding December, negative endometrial biopsy 2008 right breast DCS with m icroinvasion ER&MD+,her2 neg, 1 cm, [id number], excision,RT,MORA menarche age 15 menopause age 59 tamoxifen quit date August 2014 Surgical History Surgery Date(Month/Year) Right breast biopsy, lumpectomy, sentine l nodes August 2009 uterine biopsy, negative, postmenopausal bleeding on tamoxifen December 31, 2012 polypectomy and D&C, benign tissue No history Hospitalization History Reason Date(Month/Year) No history
[2025-09-09 10:24] LABS: Appearance Urine Clear; Glucose Urine UA Negative (Negative); PH 5.5 (5.0-9.0); Specific Gravity - Urine 1.020 (1.005-1.025); UMIC TRIGGER UACC YES
[2025-09-09 10:29] LABS: UACC Culture Trigger YES
[2025-09-09 10:50] LABS: MANUAL DIFF FLAG NO
[2025-09-09 11:04] LABS: Hematocrit 39.5 % (37.0-47.0); Hemoglobin 13.0 g/dl (12.0-16.0); Imm Gran Abs Auto 0.03 X10*3/uL (0.00-0.03); Imm Gran Pct Auto 0.6 % (0.0-0.4); Lymphocytes Absolute Auto 1.6 X10*3/uL (1.2-4.9); Mean Corpuscular HGB Conc 32.9 g/dl (31.0-35.0); Mean Corpuscular Hemoglobin 29.5 pg (27.0-33.0); Mean Corpuscular Volume 89.8 fL (80.0-98.0); NRBC Abs Auto 0.000 X10*3/uL (0.0-0.012); NRBC Pct Auto 0.0 /100WBC (0.0-0.2); Platelet Count 236 X10*3/uL (160-400); Red Blood Count 4.40 X10*6/uL (4.20-5.50); White Blood Count 5.0 X10*3/uL (4.8-10.8)
[2025-09-09 11:24] LABS: Alanine Aminotransferase 21 U/L (0-31); Albumin Level 4.4 g/dL (3.5-5.0); Alkaline Phosphatase 46 U/L (39-117); Anion Gap 11 (12-20); Aspartate Amino Transferase 29 U/L (5-31); Blood Urea Nitrogen 14 mg/dL (9-16); Calcium 9.2 mg/dL (8.4-10.2); Carbon Dioxide 29 mmol/L (22-29); Chloride 106 mmol/L (96-108); Cholesterol 170 mg/dL (<200); Estimated Glomerular Filt Rate > 60; HDL Cholesterol 94 mg/dL (>40); Potassium 3.9 mmol/L (3.3-5.1); Sodium 142 mmol/L (135-145); Total Protein 7.6 g/dL (6.5-8.0); Triglycerides 79 mg/dL (<150)
== END 2025-09-09 07:46 | disposition home or self-care (01) ==
LOC: HO.HMGCLDS 07:45
DX: Z00.00 Encounter for general adult medical examination without abnormal findings (principal); E78.5 Hyperlipidemia, unspecified
CPT/HCPCS: 36415; 80053; 80061; 81001; 81003; 82306; 84443; 85025; 87086